=== PATIENT | male | born 1965 | race Caucasian/White ===

== ENCOUNTER 2018-03-31 16:22 | Emergency (ER) | payer BC ==
[2018-03-31 17:36] LABS: BASO % 0.6 % (0-6); EOS % 4.9 % (0-6); GRAN % 57.2 % (47-80); HEMATOCRIT 38.5 % (42.0-52.0); HEMOGLOBIN 12.8 gm/dl (14.0-18.0); LYMPH % 25.5 % (16-45); MEAN CELL VOLUME 88.9 fl (81-97); MEAN CORPUSCULAR HGB CONC 33.2 g/dl (32-36); MONO % 11.8 % (0-9); PLATELET COUNT 281 K/uL (130-400); RED BLOOD COUNT 4.33 M/uL (4.40-5.70); RED CELL DISTRIBUTION WIDTH 12.9 % (11.5-14.5); WHITE BLOOD COUNT W/O DIFF 6.5 K/uL (4.2-12.2)
[2018-03-31 17:37] LABS: MEAN CORPUSCULAR HEMOGLOBIN 29.5 pg (27-33)
[2018-03-31 17:46] LABS: BLOOD UREA NITROGEN 14 mg/dL (6-20); CREATININE 0.8 mg/dL (0.7-1.2); EST GLOMERULAR FILTRATION RATE > 60 mL/min
[2018-03-31 17:49] LABS: GLUCOSE,RANDOM 97 mg/dL (74-109)
[2018-03-31] MEDS ORDERED: ENOXAPARIN 100 MG/ML SYR SQ ONE (18:00)
--- NOTE | 2018-03-31 18:09 | Emergency Department Record ---
History of Present Illness - General Chief complaint: Lower Extremity Pain Stated complaint: RT LEG PAIN/BLOOD CLOT Time Seen by Provider: 03/31/18 17:15 Source: Patient Mode of Arrival: Ambulatory Limitations: No limitations - History of Present Illness Initial comments: pt has pain in r lower leg all week that is getting worse. he also has swelling. 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 he has no cp or sob. his mother has a hx of dvt MD Complaint: Extremity pain, Extremity swelling Onset/Timin -: Week(s) Location: Right, Knee, Lower Leg Severity scale (1-10): 6 Quality: Burning Improves with: Nothing Worsens with: Exertion, Palpation Associated Symptoms: Denies other symptoms - Related Data Allergies Allergy/AdvReac Type Severity Reaction Status Date / Time seasonal Allergy SNEEZING Uncoded 03/31/18 16:36 Travel Screening - Travel/Exposure Within Last 30 Days Have you traveled within the last 30 days?: [place] Travel/Exposure Within Last Year Have you traveled outside the [place] in the last year?: No - Additonal Travel Details Have you been exposed to anyone with a communicable illness?: No - Travel Symptoms Symptom Screening: None Review of Systems Reviewed: No additional complaints except as noted below Constitutional: Reports: As per HPI. Denies: Chills, Fever, Malaise, Night sweats, Weakness, Weight change Eyes: Reports: As per HPI. Denies: Eye discharge, Eye pain, Photophobia, Vision change ENT: Reports: As per HPI. Denies: Congestion, Dental pain, Ear pain, Epistaxis , Hearing loss, Throat pain Respiratory: Reports: As per HPI. Denies: Cough, Dyspnea, Hemoptysis, Stridor, Wheezes Cardiovascular: Reports: As per HPI. Denies: Arrhythmia, Chest pain, Dyspnea on exertion, Edema, Murmurs, Orthopnea, Palpitations, Paroxysmal nocturnal dyspnea, Rheumatic Fever, Syncope Endocrine: Reports: As per HPI. Denies: Fatigue, Heat or cold intolerance, Polydipsia, Polyuria Gastrointestinal: Reports: As per HPI. Denies: Abdominal pain, Constipation, Diarrhea, Hematemesis, Hematochezia, Melena, Nausea, Vomiting Genitourinary: Reports: As per HPI. Denies: Dysuria, Frequency, Hematuria, Incontinence, Retention, Testicular pain, Testicular mass, Urgency Musculoskeletal: Reports: As per HPI. Denies: Arthralgia, Back pain, Gout, Joint swelling, Myalgia, Neck pain Skin: Reports: As per HPI. Denies: Bruising, Change in color, Change in hair/ nails, Lesions, Pruritus, Rash Neurological: Reports: As per HPI. Denies: Abnormal gait, Confusion, Headache, Numbness, Paresthesias, Seizure, Tingling, Tremors, Vertigo, Weakness Psychiatric: Reports: As per HPI. Denies: Anxiety, Auditory hallucinations, Depression, Homicidal thoughts, Suicidal thoughts, Visual hallucinations Hematological/Lymphatic: Reports: As per HPI. Denies: Anemia, Blood Clots, Easy bleeding, Easy bruising, Swollen glands Past Medical History - SOCIAL HISTORY Smoking Status: Never smoker Alcohol Use: Rare Drug Use: None - RESPIRATORY Hx Respiratory Disorders: Yes Hx Pneumonia: Yes - CARDIOVASCULAR Hx Cardio Disorders: Yes Hx Hypertension: Yes - NEURO Hx Neuro Disorders: No - GI Hx GI Disorders: No - Hx Genitourinary Disorders: No - ENDOCRINE Hx Endocrine Disorders: No - MUSCULOSKELETAL Hx Musculoskeletal Disorders: Yes Hx Arthritis: Yes Hx Back Injury: Yes - PSYCH Hx Psych Problems: Yes Hx Anxiety: Yes - HEMATOLOGY/ONCOLOGY Hx Hematology/Oncology Disorders: No Family Medical History Any Significant Family History?: No Family Hx Comment (NOT TO BE USED IN PLACE OF ITEMS BELOW): Mom -dvt's Hx Cancer: Father Hx Diabetes: Father Hx Heart Disease: Father, Mother Hx HTN: Father Physical Exam - General General Appearance: Alert, Oriented x3, Cooperative, Mild distress - Head Head exam: Normal inspection - Eye Eye exam: Normal appearance, PERRL, EOMI Pupils: Normal accommodation - ENT ENT exam: Normal exam, Mucous membranes moist, Normal external ear exam, Normal orophraynx Ear exam: Normal external inspection. negative: External canal tenderness Nasal Exam: Normal inspection. negative: Discharge, Sinus tenderness Mouth exam: Normal external inspection, Tongue normal Teeth exam: Normal inspection. negative: Dental caries Throat exam: Normal inspection. negative: Tonsillar erythema, Tonsillar exudate - Neck Neck exam: Normal inspection, Full ROM. negative: Tenderness - Respiratory Respiratory exam: Normal lung sounds bilaterally. negative: Respiratory distress - Cardiovascular Cardiovascular Exam: Regular rate, Normal rhythm, Normal heart sounds - GI/Abdominal GI/Abdominal exam: Soft, Normal bowel sounds. negative: Tenderness - Rectal Rectal exam: Deferred - exam: Deferred - Extremities Extremities exam: Calf tenderness, Full ROM, Normal capillary refill, Tenderness , Other (swelling of leg) - Back Back exam: Reports: Normal inspection, Full ROM. Denies: Muscle spasm, Rash noted, Tenderness - Neurological Neurological exam: Alert, CN II-XII intact, Normal gait, Oriented X3 - Psychiatric Psychiatric exam: Normal affect, Normal mood - Skin Skin exam: Dry, Intact, Normal color, Warm Course Vital Signs 03/31/18 16:24 Temperature 97.8 F Pulse Rate 79 Respiratory 20 Rate Blood Pressure 156/102 Pulse Ox 97 - Reevaluation(s) Reevaluation #1: 03/31/18 18:27 pt does not want to be transferred for a doppler. he prefers to get a shot and come back in the morning Medical Decision Making - Lab Data Result diagrams: 03/31/18 17:25 03/31/18 17:25 Lab Results 03/31/18 03/31/18 03/31/18 Range/Units 17:25 17:25 17:25 WBC 6.5 (4.2-12.2) K/uL RBC 4.33 L (4.40-5.70) M/uL Hgb 12.8 L (14.0-18.0) gm/dl Hct 38.5 L (42.0-52.0) % MCV 88.9 (81-97) fl MCH 29.5 (27-33) pg MCHC 33.2 (32-36) g/dl RDW 12.9 (11.5-14.5) % Plt Count 281 (130-400) K/uL MPV 9.0 (7.4-10.4) fl Gran % 57.2 (47-80) % Lymphocytes % 25.5 (16-45) % Monocytes % 11.8 H (0-9) % Eosinophils % 4.9 (0-6) % Basophils % 0.6 (0-6) % D-Dimer 0.43 (0-0.59) mg/L FEU Sodium 138 (136-145) mmol/L Potassium 3.9 (3.4-4.5) mmol/L Chloride 103 (98-107) mmol/L Carbon Dioxide 25.0 (22-29) mmol/L Anion Gap 10.0 (7-16) BUN 14 (6-20) mg/dL Creatinine 0.8 (0.7-1.2) mg/dL Estimated GFR > 60 mL/min Random Glucose 97 (74-109) mg/dL Calcium 8.5 L (8.6-10.0) mg/dL Disposition Disposition: Discharge Clinical Impression: Right leg swelling Disposition: Home, Self-Care Condition: (1) Good Instructions: Leg Edema (ED), Leg Pain (ED) Additional Instructions: return at 7:30am for a doppler/us of r leg. return sooner if worse. Forms: Patient Portal Access Quality - Quality Measures Quality Measures: N/A - Blood Pressure Screening Does Patient Have Any of the Following: No Blood Pressure Classification: Hypertensive Reading Systolic Measurement: 156 Diastolic Measurement: 102 Screening for High Blood Pressure: < First Hypertensive BP, F/U Documented > [ G8950] First Hypertensive Follow-up Interventions: Follow-up with rescreen GT 1 day and LT 4 weeks.
--- NOTE | 2018-04-02 14:20 | RADIOLOGY REPORT ---
EXAM: RIGHT TIBIA AND FIBULA HISTORY: RIGHT LOWER LEG PAIN AND SWELLING FOR THE PAST WEEK. TENDERNESS AND INTERMITTENT BURNING SENSATION. TECHNIQUE: AP and lateral views of the right tibia and fibula were obtained. Comparison: None. FINDINGS: The bones are intact. There is no acute fracture, dislocation, or destructive process. There are mild arthritic changes within the knee. There are chronic calcific densities inferior to the medial and lateral malleoli. Mild arthritic changes are also present at the ankle joint. There are small plantar and posterior calcaneal spurs. There are no radiopaque foreign bodies. IMPRESSION: 1. NO ACUTE PATHOLOGY IDENTIFIED. 2. CHRONIC FINDINGS ABOVE. JOB NUMBER: [id number] [facility]
== END 2018-03-31 18:36 | disposition home or self-care (01) ==
LOC: ER 16:22
DX: R60.0 Localized edema (principal); M79.661 Pain in right lower leg; I10 Essential (primary) hypertension
CPT/HCPCS: 80048; 85025; 85379; 96372; 99283; 99284; J1650

== ENCOUNTER 2018-04-01 07:31 | Emergency (ER) | payer BC ==
--- NOTE | 2018-04-01 07:53 | Emergency Department Record ---
History of Present Illness - General Chief Complaint: Recheck - Other Stated Complaint: ULTRASOUND Time Seen by Provider: 04/01/18 07:39 Source: Patient Mode of arrival: Ambulatory Limitations: No limitations - History of Present Illness Initial Comments: The patient is here due to R leg pain and swelling for a week. He was here in the ER yesterday and had a neg xray of the R lower leg. He then was set up for a R leg doppler this AM and has returned to get the test completed. The patient states his pain is improved and the swelling to the RLE has resolved. He also denies any CP, SOB, or MELITA. Complaint: Other Onset/Timin -: Days(s) Initial Visit For: Other Returns Today for: Other Symptoms Since Prior Visit: No new symptoms Associated Symptoms: None - Related Data Home Medications Medication Instructions Recorded Confirmed Last Taken Fluoxetine HCl 20 mg PO DAILY 04/01/18 04/01/18 Unknown Lisinopril 10 mg PO DAILY 04/01/18 04/01/18 Unknown Allergies Allergy/AdvReac Type Severity Reaction Status Date / Time seasonal Allergy SNEEZING Uncoded 04/01/18 07:38 Travel Screening - Travel/Exposure Within Last 30 Days Have you traveled within the last 30 days?: No Review of Systems Constitutional: Denies: Chills, Fever Eyes: Denies: Eye discharge ENT: Denies: Congestion Respiratory: Denies: Cough, Dyspnea Past Medical History - SOCIAL HISTORY Smoking Status: Never smoker Alcohol Use: None Drug Use: None - RESPIRATORY Hx Respiratory Disorders: Yes Hx Pneumonia: Yes - CARDIOVASCULAR Hx Cardio Disorders: Yes Hx Hypertension: Yes - NEURO Hx Neuro Disorders: No - GI Hx GI Disorders: No - Hx Genitourinary Disorders: No - ENDOCRINE Hx Endocrine Disorders: No - MUSCULOSKELETAL Hx Musculoskeletal Disorders: Yes Hx Arthritis: Yes Hx Back Injury: Yes - PSYCH Hx Psych Problems: Yes Hx Anxiety: Yes - HEMATOLOGY/ONCOLOGY Hx Hematology/Oncology Disorders: No Family Medical History Any Significant Family History?: Yes Family Hx Comment (NOT TO BE USED IN PLACE OF ITEMS BELOW): Mom -dvt's Hx Cancer: Father Hx Diabetes: Father Hx Heart Disease: Father, Mother Hx HTN: Father Physical Exam - General General Appearance: Alert, Oriented x3, Cooperative, No acute distress - Head Head exam: Atraumatic, Normocephalic - Eye Eye exam: Normal appearance, PERRL - Neck Neck exam: Normal inspection, Full ROM. negative: Tenderness - Respiratory Respiratory exam: Normal lung sounds bilaterally. negative: Respiratory distress - Cardiovascular Cardiovascular Exam: Regular rate, Normal rhythm, Normal heart sounds - Extremities Extremities exam: Normal inspection, Full ROM, Normal capillary refill, Other ( There is reproducible tenderness to the R medial proximal lower leg over the tibia. There is no calf tenderness or swelling. Distal foot pulses are strong and equal bilaterally.). negative: Calf tenderness, Joint swelling, Pedal edema , Tenderness Image of Full Body: 1 - Area of pain and tenderness. Course Vital Signs 04/01/18 07:39 Temperature 98.1 F Pulse Rate 70 Respiratory 20 Rate Blood Pressure 142/90 Pulse Ox 97 - Reevaluation(s) Reevaluation #1: I did discuss the neg Doppler with the patient and the need for F/U if not better. 04/01/18 09:12 Medical Decision Making - Data Complexity MDM Data: X-Ray Ordered and/or Reviewed (R leg Doppler: Neg.) Disposition Disposition: Discharge Clinical Impression: Right leg swelling Disposition: Home, Self-Care Condition: (2) Stable Instructions: Leg Pain (ED) Additional Instructions: Please use Tylenol or Motrin for pain. Please see your family doctor if not better in 2-3 days. Return to the ER for any worsening symptoms. Forms: Patient Portal Access Time of Disposition: 09:13 Quality - Quality Measures Quality Measures: N/A - Blood Pressure Screening View Details: Yes Does Patient Have Any of the Following: No Blood Pressure Classification: Hypertensive Reading Systolic Measurement: 154 Diastolic Measurement: 93 Screening for High Blood Pressure: < First Hypertensive BP, F/U Documented > [ G8950] First Hypertensive Follow-up Interventions: Referral to alternative/primary care provider.
--- NOTE | 2018-04-03 08:57 | US VENOUS DOPPLER REPORT ---
EXAM: RIGHT LOWER EXTREMITY VENOUS DUPLEX ULTRASOUND HISTORY: RIGHT LEG PAIN AND SWELLING. TECHNIQUE: Right lower extremity Duplex venous ultrasound was obtained. Comparison: Right leg radiographs 03/31/18. FINDINGS: Normal compression and augmentation of the right external iliac, saphenofemoral junction, common femoral, deep femoral, proximal/mid/distal superficial femoral, popliteal, posterior tibial, peroneal, and anterior tibial veins. Normal compression and augmentation of the right external iliac vein, saphenofemoral junction, and common femoral vein. IMPRESSION: NO EVIDENCE OF RIGHT LOWER EXTREMITY DEEP VENOUS THROMBOSIS. JOB [facility]BER: [id number] [facility]
== END 2018-04-01 09:21 | disposition home or self-care (01) ==
LOC: ER 07:31
DX: R06.00 Dyspnea, unspecified (principal); M79.661 Pain in right lower leg
CPT/HCPCS: 99281